=== PATIENT | female | born 1980 | race Caucasian/White ===

== ENCOUNTER 2017-10-31 20:01 | Emergency (ER) | payer OTHER ==
[2017-10-31 20:46] VITALS: BMI 29.9
[2017-10-31 21:33] LABS: BASO % 0.3 % (0.0-2.0); EOS # 0.3 K/uL (0.0-0.7); HEMOGLOBIN 10.5 g/dL (12.0-16.0); LYMPH # 2.1 K/uL (1.0-4.3); LYMPH % 24.6 % (20.0-40.0); MEAN CELL VOLUME 78.7 fl (81.0-99.0); MEAN CORPUSCULAR HEMOGLOBIN 25.9 pg (27.0-31.0); MEAN CORPUSCULAR HGB CONC 32.9 g/dL (33.0-37.0); MEAN PLATELET VOLUME 8.7 fl (7.2-11.7); MONO # 0.7 K/uL (0.0-0.8); MONO % 8.2 % (0.0-10.0); NEUT # 5.6 K/uL (1.8-7.0); NEUT % 63.9 % (50.0-75.0); RBC 4.07 Mil/uL (3.80-5.20); RED CELL DISTRIBUTION WIDTH 16.3 % (11.5-14.5); SQUAMOUS EPITHIAL 1 /hpf (0-5); URINE BACTERIA OCC (<OCC); URINE BILIRUBIN NEGATIVE (NEGATIVE); URINE BLOOD NEGATIVE (NEGATIVE); URINE CLARITY CLEAR (Clear); URINE COLOR STRAW (YELLOW); URINE GLUCOSE (UA) NEG (Normal); URINE LEUKOCYTE ESTERASE NEG Leu/uL (Negative); URINE PROTEIN NEGATIVE (NEGATIVE); URINE UROBILINOGEN 0.2-1.0 mg/dL (0.2-1.0); WHITE BLOOD COUNT 8.7 K/uL (4.8-10.8)
[2017-10-31 21:39] LABS: ALB/GLOB RATIO 0.9 (1.0-2.1); ALBUMIN 2.9 g/dL (3.5-5.0); ALT/SGPT 36 U/L (9-52); AST/SGOT 24 U/L (14-36); BILIRUBIN,DIRECT 0.2 mg/ml (0.0-0.4); BLOOD UREA NITROGEN 6 mg/dl (7-17); CALCIUM 9.3 mg/dL (8.4-10.2); GFR AFRICAN-AMERICAN > 60; GFR NON-AFRICAN AMERICAN > 60; URIC ACID 4.7 mg/Dl (2.2-7.5)
[2017-11-01 02:56] VITALS: BP 153/94; PULSE 94
--- NOTE | 2017-11-01 09:57 | OBHP ---
Datetime: 10/31/2017 20:51 IP Adm Impression: , intrauterine IP Chief Complaint Other: PIH IP Admit Plan: Observation/Evaluation IP Admit Plan Other: PIH work up Admit Comment, IP Provider: 26 y/o F, , IUP at 34.4wks, PMH with Chronic HTN comes to the [facility] a fter home BP of 159/118 reported. Pateint denies any headache, dizziness, blurred vision, SOB, chest pain, abdominal pain or urinary symptoms. PNC: Dr. De Los Santos PNI: Elevated BP PMH: Chronic HTN PSH: Denies OB: , 1 missca, 1 FT NVD Meds: Labetolol 300mg BID, last does 3 hrs ago Allg: Sulfa SH: Denies any alcohol, smoking or drug use VS: serial readings PE: as above A/P: 26 y/o F, , IUP at 34.4wks, PMH with Chronic HTN comes to the [facility] for PIH work up - PIH labs - VS monitoring - NST monitoring - Reevaluation and observation Case discussed with Dr. Cain --- Ambrocio Jasso, PGY-1 PIH work up reviewed with patient BP 140s systolic and 90s diastolic will discharge home with lifestyle modification and low sodium diet instruction -- Discussed with Dr. Cain --- NEEL, PGY-1 Addendum: I saw examined patient. Patient with stable blood pressures and normal lab work. Patient discharge d home with labor precautions. Patient also given hypertensive precautions. Plan to maintain current dose of antihypertensive medication. Patient has follow-up scheduled for tomorrow. Discussed plan with patient and all patient questions answered. [place] Extremities - PN: Normal Abdomen - PN: Normal Back - PN: Normal Lungs - PN: Normal Heart - PN: Normal Thyroid - PN: Normal Neurologic - PN: Normal HEENT - PN: Normal General - PN: Normal FHR - Baseline A Provider: 140 Comments, ACOG Physical Exam: ROS unremarkable BP: 150/99 PIH work up (Annotations: Data stored by N on behalf of user) Vital Signs Provider: Reviewed Vital Signs Provider Details: elevated BP NICHD Variability Prov Fetus A: Moderate 6-25bpm NICHD Accel Fetus A IP Provider: 15X15 FHR Category Provider Fetus A: Category I NICHD Decel Fetus A IP Provider: None
== END 2017-10-31 22:05 | disposition home or self-care (01) ==
LOC: H.EROB2 20:01
DX: O16.3 Unspecified maternal hypertension, third trimester (principal); Z3A.34 34 weeks gestation of pregnancy

== ENCOUNTER 2017-11-08 17:46 | Inpatient (IN) | payer OTHER ==
[2017-11-08] MEDS ORDERED: Lactated Ringer's 1,000 ML IV SCH ×2 (18:30→21:19)
[2017-11-08 18:39] VITALS: BMI 29.3
[2017-11-08] MEDS ORDERED: Betamethasone Soluspan 30 mg/5mL Inj Susp IM SCH (19:00)
[2017-11-08 20:22] LABS: BASO # 0.1 K/uL (0.0-0.2); BASO % 0.7 % (0.0-2.0); EOS # 0.3 K/uL (0.0-0.7); EOS % 2.7 % (0.0-4.0); HEMOGLOBIN 11.7 g/dL (12.0-16.0); LYMPH # 2.4 K/uL (1.0-4.3); LYMPH % 23.6 % (20.0-40.0); MEAN CELL VOLUME 78.2 fl (81.0-99.0); MEAN CORPUSCULAR HEMOGLOBIN 25.4 pg (27.0-31.0); MEAN CORPUSCULAR HGB CONC 32.5 g/dL (33.0-37.0); MEAN PLATELET VOLUME 9.4 fl (7.2-11.7); MONO # 0.9 K/uL (0.0-0.8); MONO % 8.8 % (0.0-10.0); NEUT # 6.5 K/uL (1.8-7.0); NEUT % 64.2 % (50.0-75.0); NRBC % 0.1 % (0.0-0.0); RBC 4.59 Mil/uL (3.80-5.20); RED CELL DISTRIBUTION WIDTH 16.7 % (11.5-14.5); WHITE BLOOD COUNT 10.2 K/uL (4.8-10.8)
[2017-11-08 20:37] LABS: BLOOD UREA NITROGEN 8 mg/dl (7-17); GFR AFRICAN-AMERICAN > 60; GFR NON-AFRICAN AMERICAN > 60
[2017-11-08 20:38] LABS: ALBUMIN 3.4 g/dL (3.5-5.0); AST/SGOT 22 U/L (14-36); CALCIUM 9.5 mg/dL (8.4-10.2)
--- NOTE | 2017-11-08 20:43 | OBADHP ---
Datetime: 11/08/2017 18:49 Admit Comment, IP Provider: CC: IOL for CHTN HPI: 36 YO @ 35.4wks IUP (CARLOS A 12/09/17) presents to L_D for IOL for chronic HTN. PT was seen i n clinic today with bps in 140-150s/100-110s. Pt reamins asymptomatic but BP remains elevated in L_D. Denies headache, blurry vision, RUQ pain, mild pedal edema. Endorsing good FM, no LOF, VB or CTx. MD: Sriram ObHx: 1x FT NVD in 2008 (IOL for PROM), 2015 @ 8 wks PMH: CHTN SurgH: denies FH: HTN and HLD Meds: Labatalol 300mg BID and PNV Allergies: Sulfa-rash PE Gen: NAD Cardio: S1S2 no additional heart sounds Resp: clear breath sounds b/l Abdomen: Gravid, NT, BS+ Neuro: AAO x 3 Ext: mild pedal edeam b/l, NT FM: 135, catagory I U/s today in clinic (per pt): Vertex A/P: 36 YO @ 35.4wks IUP (CARLOS A 12/09/17) is admitted for worsening chronic HTN. Pt reamins asym ptomatic. HIV neg, RPR neg. -admit pt -blood work -anesthesiology -continue FM -vitals signs -GBS to be done -continue labetalol 300mg Q12 -betamethasone -induction protocol Pt discussed with attending Dr. Milla Mariano, PGY I Addendum by Dr. Loyola: Patient evaluated independently and I agree with the above Pelvic Type - PN: Adequate Extremities - PN: Normal Abdomen - PN: Normal Back - PN: Not Done Breast - PN: Not Done Lungs - PN: Normal Heart - PN: Normal Thyroid - PN: Not Done Neurologic - PN: Normal HEENT - PN: Normal General - PN: Normal FHR - Baseline A Provider: 135 Vital Signs Provider: Reviewed Vital Signs Provider Details: Elevated BPs IP Chief Complaint: Scheduled induction of labor NICHD Variability Prov Fetus A: Moderate 6-25bpm NICHD Accel Fetus A IP Provider: 15X15 FHR Category Provider Fetus A: Category I Genitourinary Exam: Normal DTRs - PN: Not Done EGA AdmitDate IP: 35.5 IP Adm Impression: , intrauterine IP Admit Plan: Admit to unit; Initiate labor induction protocol Datetime: 10/31/2017 20:51 IP Chief Complaint Other: PIH IP Admit Plan Other: PIH work up Comments, ACOG Physical Exam: ROS unremarkable BP: 150/99 PIH work up (Annotations: Data stored by CPN on behalf of user) NICHD Decel Fetus A IP Provider: None
[2017-11-08 21:06] LABS: ALT/SGPT 38 U/L (9-52)
--- NOTE | 2017-11-08 21:11 | OBPN ---
Datetime: 11/08/2017 18:49 Contraction Comments Provider: infrequent FHR - Baseline A Provider: 135 Vital Signs Provider: Reviewed Vital Signs Provider Details: Elevated BPs NICHD Accel Fetus A IP Provider: 15X15 FHR Category Provider Fetus A: Category I NICHD Variability Prov Fetus A: Moderate 6-25bpm Dilatation, Provider: FT Effacement, Provider: 50 Station, Provider: high Datetime: 10/31/2017 20:51 IP Progress Note Comment: Evaluated patient and spoke with MFM on the phone. Pt's highest BP is 160/ 100, denies MARVIN, blurry vision, N/V, CBC/CMP/LDH nml. Plan at this time is not to induce, but to alin nue evaluating. Cervidil removed. WIll continue 24 hour urine collection, Betamethasone was given, wi ll start MagSO4 while continuing to evaluate to rule out superimposed pre-eclampsia. WIll Start Labet alol 300mg PO TID and order maternal echo for the morning. FHR = 130 mod zoila, +accels, no decels. antony ctive Cat-I. TOCO = jaret irregularly. If patient's BP is > 160/105 over the course NICHD Decel Fetus A IP Provider: None
[2017-11-08] MEDS ORDERED: Magnesium Sulfate 4 gm/100 ml 4 GM/100 ML BAG IVPB ONE (21:30)
[2017-11-08] MEDS ORDERED: Magnesium Sul 40GM/1L SW 40 GM/1,000 ML ML IV ONE (22:00)
[2017-11-09 06:33] VITALS: RESP 16
[2017-11-09] MEDS ORDERED: Betamethasone Soluspan 30 mg/5mL Inj Susp IM ONE (08:43)
--- NOTE | 2017-11-09 10:40 | OBPN ---
Datetime: 11/09/2017 10:37 IP Progress Note Comment: OB Hospitalist on-call Sign out rec'd BP rev'd A: IUP at 35+w/elevated BP chronic HTN : case rev'd with MFM...will decrease Labetolol from 300mg TID to 200mg TID...continue 24h urine collection and MgSO4 FHR Category Provider Fetus A: Category I
--- NOTE | 2017-11-09 16:19 | CARD ---
APPROVED REPORT EXAM: Two-dimensional and M-mode echocardiogram with Doppler and color Doppler. Other Information Quality : GoodRhythm : NSR INDICATION Hypertension/HCVD Surgery/Intervention : Yes 2D DIMENSIONS IVSd0.87 (0.7-1.1cm)LVDd3.04 (3.9-5.9cm) LVOT Diameter1.46 (1.8-2.4cm)PWd0.82 (0.7-1.1cm) IVSs1.48 (0.8-1.2cm)LVDs1.90 (2.5-4.0cm) FS (%) 37.5 %PWs1.71 (0.8-1.2cm) LVEF (%)55.0 (>50%) M-Mode DIMENSIONS Left Atrium (MM)2.55 (2.5-4.0cm)IVSd1.29 (0.7-1.1cm) Aortic Root3.04 (2.2-3.7cm)LVDd4.25 (4.0-5.6cm) Aortic Cusp Exc.1.93 (1.5-2.0cm)PWd1.36 (0.7-1.1cm) IVSs1.90 cmFS (%) 59 % LVDs1.75 (2.0-3.8cm)PWs2.01 cm Aortic Valve LVOT Peak Lwdsckzj16.2cm/sLVOT VTI14.06cm Mitral Valve E/A ratio0.0 TDI E/Lateral E'0.0E/Medial E'0.0 Pulmonary Valve PV Peak Aafkiafp174.2cm/s LEFT VENTRICLE The left ventricle cavity is small. There is mild concentric left ventricular hypertrophy. The left ventricular function is normal. The left ventricular ejection fraction is within the normal range. There is normal LV segmental wall motion. Transmitral Doppler flow pattern is Grade I-abnormal relaxation pattern. RIGHT VENTRICLE The right ventricle is normal size. There is normal right ventricular wall thickness. The right ventricular systolic function is normal. ATRIA The left atrium size is normal. The right atrium size is normal. AORTIC VALVE The aortic valve is mildly thickened. No aortic regurgitation is present. There is no aortic valvular stenosis. MITRAL VALVE The mitral valve is mildly thickened. There is no mitral valve stenosis. There is no mitral valve regurgitation noted. TRICUSPID VALVE The tricuspid valve is normal in structure. There is no tricuspid valve regurgitation noted. PULMONIC VALVE The pulmonary valve is normal in structure. There is no pulmonic valvular regurgitation. GREAT VESSELS The aortic root is normal in size. The IVC was not visualized. PERICARDIAL EFFUSION There is a trace loculated anterior pericardial effusion. <Conclusion> Poor Echo window The left ventricle cavity is small. There is mild concentric left ventricular hypertrophy. The left ventricular function is normal. The left ventricular ejection fraction is within the normal range. There is normal LV segmental wall motion. Transmitral Doppler flow pattern is Grade I-abnormal relaxation pattern.
[2017-11-09] MEDS ORDERED: Magnesium Sul 40GM/1L SW 40 GM/1,000 ML ML IV ONE (18:56)
[2017-11-10 03:13] VITALS: BP 121/67; PULSE 99; TEMP 98.2; O2SAT 99
== END 2017-11-09 22:15 | disposition home or self-care (01) | DRG 781 ==
LOC: H.EROB2 17:46 → H.L&D 18:39
PROVIDERS: ADMIT Obstetrics & Gynecology; ATTEND Obstetrics & Gynecology
PROC: 4A1HXCZ Monitoring of Products of Conception, Cardiac Rate, External Approach (ICD-10-PCS; principal; 2017-11-08)
DX: O10.913 Unspecified pre-existing hypertension complicating pregnancy, third trimester (principal); Z3A.35 35 weeks gestation of pregnancy; O09.523 Supervision of elderly multigravida, third trimester; Z88.2 Allergy status to sulfonamides

== ENCOUNTER 2017-11-17 20:18 | Inpatient (IN) | payer OTHER ==
[2017-11-17 21:08] VITALS: BMI 29.0
[2017-11-17] MEDS ORDERED: Lactated Ringer's 1,000 ML IV SCH (21:15)
[2017-11-17] MEDS: Lactated Ringer's 1,000 ML IV SCH (21:45)
[2017-11-17 22:05] LABS: BASO # 0.1 K/uL (0.0-0.2); BASO % 0.5 % (0.0-2.0); EOS # 0.2 K/uL (0.0-0.7); EOS % 2.1 % (0.0-4.0); HEMOGLOBIN 12.1 g/dL (12.0-16.0); LYMPH # 2.6 K/uL (1.0-4.3); LYMPH % 26.5 % (20.0-40.0); MEAN CELL VOLUME 77.1 fl (81.0-99.0); MEAN CORPUSCULAR HEMOGLOBIN 25.5 pg (27.0-31.0); MEAN PLATELET VOLUME 9.3 fl (7.2-11.7); MONO # 0.9 K/uL (0.0-0.8); MONO % 8.8 % (0.0-10.0); NEUT % 62.1 % (50.0-75.0); RBC 4.76 Mil/uL (3.80-5.20); RED CELL DISTRIBUTION WIDTH 16.4 % (11.5-14.5); WHITE BLOOD COUNT 9.7 K/uL (4.8-10.8)
[2017-11-17 22:15] LABS: SQUAMOUS EPITHIAL < 1 /hpf (0-5); URINE BACTERIA RARE (<OCC); URINE BILIRUBIN NEGATIVE (NEGATIVE); URINE BLOOD NEGATIVE (NEGATIVE); URINE CLARITY CLEAR (Clear); URINE COLOR STRAW (YELLOW); URINE GLUCOSE (UA) NEG (Normal); URINE LEUKOCYTE ESTERASE NEG Leu/uL (Negative); URINE PROTEIN NEGATIVE (NEGATIVE); URINE UROBILINOGEN 0.2-1.0 mg/dL (0.2-1.0)
[2017-11-17 22:16] LABS: ALB/GLOB RATIO 1.1 (1.0-2.1); ALBUMIN 3.4 g/dL (3.5-5.0); ALT/SGPT 33 U/L (9-52); AST/SGOT 22 U/L (14-36); BLOOD UREA NITROGEN 9 mg/dl (7-17); CALCIUM 9.1 mg/dL (8.4-10.2); GFR AFRICAN-AMERICAN > 60; GFR NON-AFRICAN AMERICAN > 60
--- NOTE | 2017-11-17 22:43 | OBHP ---
Datetime: 11/17/2017 21:26 IP Adm Impression: Term, intrauterine IP Admit Plan: Admit to unit; Initiate labor induction protocol Admit Comment, IP Provider: 36 yo with IUP at 37 weeks gestational age; CARLOS A 12/09/17 presente d to L_D for induction of labor for hypertension. She currently denies contractions, vaginal bleeding , loss of fluid. Reports good movement. Pt was here about 10 days ago for induction, but was ob served for 24 hrs and discharged; was instructed to return today. States home BPs have been 120s/80s and she has been avoiding salt in her diet. Denies headache, blurry vision, RUQ pain, mild pedal edema. care: Dr. Brenda De Los Santos GBS neg, HIV neg, RPR neg. ObHx: 1x FT NVD in 2008, 1 2015 @ 8 wks PMH: chronic hypertension SurgHx: denies Social hx: denies tobacco, alcohol, drug use Family Hx: HTN and HLD Meds: Labatalol 300mg BID and PNV Allergies: Sulfa-rash PE Gen: no acute distress, alert, awake CV: S1S2, RRR Resp: clear breath sounds, normal effort Abdomen: gravid, +bs, no RUQ or epigastric pain Neuro: AAO x 3 Ext: nontender, no edema b/l A/P: 36 yo with IUP at 37weeks, here for IOL due to HTN Admit, preeclampsia labs, cervidil. Pt seen/discussed w/ Dr. De Los Santos. patient seen with resident I agree with the note. MFM recommends delivery chronic Hypertension pro teinuria. POC discussed with patient and partner Abdomen - PN: Normal Lungs - PN: Normal Heart - PN: Normal Neurologic - PN: Normal HEENT - PN: Normal General - PN: Normal FHR - Baseline A Provider: 150 EGA AdmitDate IP: 37.0 Vital Signs Provider: Reviewed IP Indication for Induction: Chronic Hypertension; Gest. HTN/PreEclampsia/Eclampsia IP Chief Complaint: Scheduled induction of labor NICHD Variability Prov Fetus A: Moderate 6-25bpm NICHD Accel Fetus A IP Provider: 15X15 FHR Category Provider Fetus A: Category I Datetime: 11/08/2017 18:49 Pelvic Type - PN: Adequate Extremities - PN: Normal Back - PN: Not Done Breast - PN: Not Done Thyroid - PN: Not Done Contraction Comments Provider: infrequent Vital Signs Provider Details: Elevated BPs IP Indication for Induction Oth: Worsening of CHTN Dilatation, Provider: FT Effacement, Provider: 50 Station, Provider: high Genitourinary Exam: Normal DTRs - PN: Not Done
[2017-11-18] MEDS ORDERED: Fentanyl/Bupivacaine HCl 250 ML EPI ONE (10:41)
[2017-11-18] MEDS: Lactated Ringer's 1,000 ML IV SCH (11:37)
[2017-11-18] MEDS ORDERED: Oxytocin 30 units/LR 500ML 30 UNITS/500 ML BAG IV ONE (13:05)
[2017-11-18] MEDS ORDERED: Lidocaine 1% 20 MG/2 ML PF AMP ONE (13:05)
[2017-11-18] MEDS ORDERED: Oxytocin 30 units/LR 500ML 30 U/500 ML BAG IV ONE (13:20)
[2017-11-18] MEDS ORDERED: Lidocaine 2% PF (10 ml) Amp ONE (13:23)
[2017-11-18] MEDS ORDERED: Benzocaine/Menthol SPRAY TOP PRN ×2 (14:15→18:06)
[2017-11-18] MEDS ORDERED: Oxycodone/Acetaminophen 5/325 mg Tab PO PRN ×4 (14:15→18:06)
--- NOTE | 2017-11-18 14:37 | OBDS ---
DELIVERY PERSONNEL Delivery Doctor: Dr. Cain Scrub Nurse: Crys Joe Mat Cutter: Hayley Skelton RN Anesthesiologist: Hodan Torre MD MATERNAL INFORMATION Delivery Anesthesia: Local; Epidural Medications in Delivery: Pitocin 30 units Estimated Blood Loss (ml): 300 Placenta Cultured: No Maternal Complications: None Provider Comments: Normal spontaneous vaginal delivery. Patient delivered viable infant male with Apgars of 9 and 9 at one and 5 minutes respectively. Loo se nuchal cord 1 reduced. Infant delivered via MP position. Cord gases collected. Umbilical cord b lood collection performed as per patient request. Placenta delivered spontaneously. Laceration repair ed, as above. Uterus firm and appropriately hemostatic following delivery. Patient tolerated delivery and repair well. No complications. Estimated blood loss 300 mL. LABOR SUMMARY EDC: 12/08/2017 00:00 No. Babies in Womb: 1 Attempted: No Labor Anesthesia: Epidural LABOR INFORMATION Reason for Induction: Chronic Hypertension Complete Dilatation: 11/18/2017 13:02 Cervical Ripening Agents: Cervidil Oxytocin: N/A Group B Beta Strep: Negative Steroids Given: Full Course MEMBRANES Membranes Rupture Method: Artificial Rupture of Membranes: 11/18/2017 13:02 Amniotic Fluid Color: Clear Amniotic Fluid Amount: Moderate Amniotic Fluid Odor: Normal VAGINAL DELIVERY Episiotomy: None Laceration Extension: Second Degree Laceration Type: Perineal Laceration Repair: Yes Laceration Repair Note: Second-degree midline perineal laceration. The area infiltrated with 2% lido sandy. Laceration repaired with 2. 0 repeat without complication. Patient tolerated well. Initial Vag Sponge Count: 10 Final Vag Sponge Count: 10 Initial Vag Sharps Count: 2 Final Vag Sharps Count: 2 Sponge Count Correct: Yes Sharps Count Correct: Yes BABY A INFORMATION Method of Delivery: Vaginal Born in Route : No : N/A Forceps: N/A Vacuum Extraction: N/A Shoulder Dystocia : Yes PRESENTATION/POSITION BABY A Presentation: Cephalic Cephalic Presentation: Vertex Vertex Position: Left Occipital Anterior Breech Presentation: N/A PLACENTA INFORMATION BABY A Placenta Delivery Time : 11/18/2017 13:20 Placenta Method of Delivery: Spontaneous Placenta Status: Delivered SCORES BABY A Heart Rate 1 min: >100 bpm Resp Effort 1 min: Good Cry Reflex Irritability 1 min: Cough or Sneeze or Pulls Away Muscle Tone 1 min: Active Motion Color 1 min: Body [place], Extremities Blue Resuscitation Effort 1 min: Tactile Stimulation SCORE 1 MIN: 9 Heart Rate 5 min: >100 bpm Resp Effort 5 min: Good Cry Reflex Irritability 5 min: Cough or Sneeze or Pulls Away Muscle Tone 5 min: Active Motion Color 5 min: Body [place], Extremities Blue Resuscitation Effort 5 min: Tactile Stimulation SCORE 5 MIN: 9 INFORMATION BABY A Gestational Age at Delivery: 37.0 Gestational Status: Term Outcome : Liveborn Condition : Stable Infant Sex: Male IDENTIFICATION/MEDS BABY A ID Band Number: [id number] ID Band Location: Left Leg; Left Arm WEIGHT/LENGTH BABY A Infant Birthweight (gms): 2830 Infant Weight (lb): 6 Weight (oz): 4 CORD INFORMATION BABY A No. Cord Vessels: 3 Nuchal Cord : Around Neck x1, Loose Suction: Mouth ASSESSMENT BABY A Complications: Multiple Variable Decels Physical Findings at Delivery: Within Normal Limits Infant Respirations: Appears Normal Filer Repairer/ALS Called : No Infant Care By: Dr. Infante/[place] Transferred To: Remains with Mother
[2017-11-19 06:06] LABS: BASO # 0.1 K/uL (0.0-0.2); BASO % 0.4 % (0.0-2.0); EOS # 0.1 K/uL (0.0-0.7); EOS % 0.9 % (0.0-4.0); HEMOGLOBIN 10.3 g/dL (12.0-16.0); LYMPH # 2.2 K/uL (1.0-4.3); LYMPH % 18.5 % (20.0-40.0); MEAN CELL VOLUME 76.6 fl (81.0-99.0); MEAN CORPUSCULAR HEMOGLOBIN 25.2 pg (27.0-31.0); MEAN CORPUSCULAR HGB CONC 32.9 g/dL (33.0-37.0); MEAN PLATELET VOLUME 9.1 fl (7.2-11.7); MONO # 0.9 K/uL (0.0-0.8); MONO % 7.5 % (0.0-10.0); NEUT # 8.6 K/uL (1.8-7.0); NEUT % 72.7 % (50.0-75.0); RBC 4.09 Mil/uL (3.80-5.20); RED CELL DISTRIBUTION WIDTH 16.7 % (11.5-14.5); WHITE BLOOD COUNT 11.9 K/uL (4.8-10.8)
[2017-11-19] MEDS: Multivitamin With Minerals Tab PO SCH (08:35)
[2017-11-19] MEDS ORDERED: Multivitamin With Minerals Tab PO SCH (09:00)
--- NOTE | 2017-11-19 14:44 | OBPPN ---
Datetime: 11/19/2017 14:41 PP Pain Prov: Within normal limits PP Nausea Prov: Denies PP Flatus Prov: Yes PP Breasts Prov: Not Done PP Heart Prov: Normal PP Lungs Prov: Normal PP Abdomen/Uterus Prov: Normal PP Lochia Prov: Not Done PP Vulva/Perineum Prov: Not Done PP CVA Tenderness Prov: Normal PP Extremities Prov: Normal PP Impression Prov: Normal progression PP Progress Note Prov: She doing well ambulating tolerating diet and voiding without difficulty Vital signs stable afebrile and Uterus firm below the umbilicus Extremities no Homans day #1 Ambulation, analgesia, anticipate discharge in a.m. Vital Signs Provider PP: Reviewed
[2017-11-20] MEDS: Multivitamin With Minerals Tab PO SCH (08:38)
--- NOTE | 2017-11-20 10:32 | OBPPN ---
Datetime: 11/20/2017 10:29 PP Pain Prov: Within normal limits PP Nausea Prov: Denies PP Flatus Prov: Yes PP Breasts Prov: Normal PP Heart Prov: Normal PP Lungs Prov: Normal PP Abdomen/Uterus Prov: Normal PP Lochia Prov: Normal PP Vulva/Perineum Prov: Normal PP CVA Tenderness Prov: Normal PP Extremities Prov: Normal PP Comments Phys Exam Prov: Abd: Soft, NT, BS - present UT - Firm PP Impression Prov: Normal progression PP Plan Prov: Discharge PP Progress Note Prov: S/P , PPD #2 Clinically Stable. Plan: D/C Home F/U with Dr De Los Santos in 6 weeks. IP PP Procedures: Rhogam Vital Signs Provider PP: Reviewed
--- NOTE | 2017-11-20 10:35 | OBDCSUM ---
Datetime: 11/20/2017 10:31 Discharged to, Provider: Home Follow up at, Provider: Dr De Los Santos Discharge Diagnosis, Provider: Term Delivered Discharge Time: 11/20/2017 10:31 Follow up in weeks, Provider: 4-6 weeks Discharge Comment, Provider: S/P Uncomplicated , Clinically Stable Discharge Diagnosis Prov Other: S/P Uncomplicated , Clinically Stable
[2017-11-20 22:17] VITALS: BP 118/76; PULSE 96; RESP 20; TEMP 98.3; O2SAT 100
== END 2017-11-20 15:15 | disposition home or self-care (01) | DRG 775 ==
LOC: H.EROB2 20:18 → H.L&D 21:08 → H.OB/GYN 11-18 17:50
PROVIDERS: ADMIT Obstetrics & Gynecology Gynecology; ATTEND Obstetrics & Gynecology Gynecology
PROC: 4A1HXCZ Monitoring of Products of Conception, Cardiac Rate, External Approach (ICD-10-PCS; 2017-11-17)
PROC: 10E0XZZ Delivery of Products of Conception, External Approach (ICD-10-PCS; principal; 2017-11-18)
PROC: 0KQM0ZZ Repair Perineum Muscle, Open Approach (ICD-10-PCS; 2017-11-18)
DX: O11.4 Pre-existing hypertension with pre-eclampsia, complicating childbirth (principal); Z37.0 Single live birth; O66.0 Obstructed labor due to shoulder dystocia; O69.81X0 Labor and delivery complicated by cord around neck, without compression, not applicable or unspecified; O70.1 Second degree perineal laceration during delivery; O76 Abnormality in fetal heart rate and rhythm complicating labor and delivery; O99.344 Other mental disorders complicating childbirth; F41.8 Other specified anxiety disorders; Z3A.37 37 weeks gestation of pregnancy